=== PATIENT | female | born 1960 | race Caucasian/White ===

== ENCOUNTER → 2024-07-22 06:47 | Outpatient (REF) | payer BC, SELFPAY | LOC: RAD 06:47 | PROVIDERS: ATTENDING PHYSICIAN Family Medicine | DX: M25.562 Pain in left knee (principal); M79.18 Myalgia, other site; M76.892 Other specified enthesopathies of left lower limb, excluding foot | CPT/HCPCS: 93971 ==

== ENCOUNTER → 2025-04-18 10:05 | Outpatient (REF) | payer BC, SELFPAY ==
[2025-04-18 10:58] LABS: Hematocrit 44.1 % (37.0-47.0); Hemoglobin 14.1 g/dL (12.0-16.0); Mean Corp Hgb Conc. 32.0 g/dL (33.0-37.0); Mean Corpuscular Volume 91.3 fL (81.0-99.0); Nucleated Red Blood Cells % 0 %; Platelet Count 328 10^3/uL (130-400); Red Cell Dist. Width 14.4 % (11.5-14.5); Urine Character Clear (Clear)
[2025-04-18 11:11] LABS: Urine Red Blood Cell 0-2 /HPF (0-2); Urine Squamous Cell 0-2 /LPF (Few)
[2025-04-18 11:49] LABS: ALT (SGPT) 59 U/L (0-35); AST (SGOT) 44 U/L (14-36); Albumin 4.4 g/dl (3.5-5.0); Alkaline Phosphatase 73 U/L (38-126); Blood Urea Nitrogen 18 mg/dl (7-17); Calcium 9.9 mg/dl (8.4-10.2); Carbon Dioxide 30 mmol/L (22-30); Chloride 105 mmol/L (98-107); Glucose 89 mg/dl (70-99); Potassium 5.0 mmol/L (3.5-5.1); Sodium 138 mmol/L (135-145); Total Protein 7.1 g/dl (6.3-8.2); eGFR > 60.00
== END ==
LOC: REG 10:05
PROVIDERS: ATTENDING PHYSICIAN Nurse Practitioner Family
DX: R10.32 Left lower quadrant pain (principal); I10 Essential (primary) hypertension; Z68.36 Body mass index [BMI] 36.0-36.9, adult; Z13.0 Encounter for screening for diseases of the blood and blood-forming organs and certain disorders involving the immune mechanism
CPT/HCPCS: 36415; 80053; 81003; 81015; 84443; 85025; 87077; 87086; 87186